=== PATIENT | female | born 1990 | race Caucasian/White ===

== ENCOUNTER 2017-06-19 07:42 | Inpatient (IN) | payer OTHER ==
[2017-06-19 08:00] VITALS: BMI 30.2
[2017-06-19 08:29] LABS: BILIRUBIN,URINE NEGATIVE (NEGATIVE); BLOOD/HEMOGLOBIN,URINE 5+ (NEGATIVE); GLUCOSE, URINE NEGATIVE (NEGATIVE); KETONES,URINE 2+ (NEGATIVE); LEUKOCYTE ESTERASE ,URINE 1+ (NEGATIVE); NITRITES,URINE NEGATIVE (NEGATIVE); PROTEIN,URINE NEGATIVE (NEGATIVE); UROBILINOGEN,URINE NORMAL (NORMAL)
[2017-06-19 08:54] LABS: AMORPHOUS SEDIMENT,UR 1+ /HPF (NEGATIVE); APPEARANCE,URINE HAZY (CLEAR); BACTERIA,URINE TRACE /HPF (NEGATIVE); COLOR,URINE YELLOW (YELLOW); RBC,URINE RARE /HPF (NEGATIVE); SQUAMOUS EPITHELIAL CELL,UR MANY /HPF (NEGATIVE)
[2017-06-19 08:55] LABS: MUCUS,URINE MODERATE /HPF (NEGATIVE)
[2017-06-19] MEDS ORDERED: LR 1000 ML IV 1,000 ML IV ONE ×2 (09:58→10:47)
[2017-06-19] MEDS ORDERED: ANCEF VIAL 1 GM ONE (09:59)
[2017-06-19] MEDS ORDERED: DURAMORPH ONE (10:25)
[2017-06-19] MEDS ORDERED: ANCEF VIAL 1 GM 1 GM in NS 50 ML IV + SPIKE MINIBAG* 50 ML IV PRN (10:25)
[2017-06-19 10:30] LABS: BASOPHILS % (AUTO) 0.3 % (0.2-1.0); EOSINOPHILS % (AUTO) 0.6 % (0.9-2.9); HEMATOCRIT 33.9 % (36.0-47.0); HEMOGLOBIN 11.7 g/dL (12.0-16.0); LYMPHOCYTES # (AUTO) 1.7 X10^3/uL (1.3-2.9); LYMPHOCYTES % (AUTO) 20.5 % (21.0-51.0); MEAN CORPUSCULAR HEMOGLOBIN 30.8 pg (27.0-34.0); MEAN CORPUSCULAR HGB CONC 34.6 g/dL (33.0-35.0); MEAN CORPUSCULAR VOLUME 89.1 fL (80.0-100.0); MONOCYTES # (AUTO) 0.5 x10^3/uL (0.3-0.8); MONOCYTES % (AUTO) 5.7 % (0.0-13.0); NEUTROPHILS % (AUTO) 72.9 % (42.0-75.0); PLATELET COUNT 168 X10^3/uL (150.0-450.0); RED CELL DISTRIBUTION WIDTH 12.7 % (11.6-16.5); WHITE BLOOD COUNT 8.2 X10^3/uL (3.6-10.0)
[2017-06-19] MEDS ORDERED: FLUVIRIN IM ONE (10:38)
[2017-06-19 10:45] LABS: ALANINE AMINOTRANSFERASE 12 Units/L (12-78); ALBUMIN 2.4 g/dL (3.4-5.0); ALKALINE PHOSPHATASE 195 Units/L (46-116); ASPARTATE AMINO TRANSFERASE 15 Units/L (15-37); BLOOD UREA NITROGEN 5 mg/dL (7-18); CALCIUM 8.1 mg/dL (8.5-10.1); CARBON DIOXIDE 20.7 mmol/L (21-32); CHLORIDE 104 mmol/L (98-107); COR CA(FOR HYPOALB) 9.4 mg/dL (8.5-10.1); CREATININE 0.52 mg/dL (0.55-1.02); SODIUM 135 mmol/L (136-145); TOTAL PROTEIN 6.4 g/dL (6.4-8.2); eGFR BLACK RACES > 60 (>60); eGFR NON BLACK RACES > 60 (>60)
[2017-06-19] MEDS ORDERED: D5 1/2 NS 1L W PITOCIN 20 UNITS/L 20 UNITS/1,000 ML BAG IV ONE (10:47)
[2017-06-19] MEDS ORDERED: D5 1/2 NS 1000 ML 1,000 ML IV SCH (11:00)
[2017-06-19] MEDS ORDERED: NS IRRIGATION 1000 ML 1,000 ML IR ONE (11:20)
[2017-06-19] MEDS ORDERED: BENADRYL INJ 50 MG VIAL IVP PRN ×2 (11:32→11:49)
[2017-06-19] MEDS ORDERED: REGLAN INJ 10 MG VIAL IVP PRN ×2 (11:32→11:49)
[2017-06-19] MEDS ORDERED: ZOFRAN INJ 4 MG VIAL IVP PRN ×2 (11:32→11:49)
[2017-06-19] MEDS ORDERED: PHENERGAN INJ 25 MG IVP PRN (11:32)
[2017-06-19 11:47] LABS: BILIRUBIN,URINE NEGATIVE (NEGATIVE); BLOOD/HEMOGLOBIN,URINE 2+ (NEGATIVE); GLUCOSE, URINE NEGATIVE (NEGATIVE); KETONES,URINE 3+ (NEGATIVE); LEUKOCYTE ESTERASE ,URINE 1+ (NEGATIVE); NITRITES,URINE NEGATIVE (NEGATIVE); PROTEIN,URINE 1+ (NEGATIVE); UROBILINOGEN,URINE 1+ (NORMAL)
[2017-06-19] MEDS ORDERED: MYLICON TAB 80 MG CHEW PO PRN (11:49)
[2017-06-19] MEDS ORDERED: PERCOCET TAB 5/325 MG PO PRN (11:49)
[2017-06-19] MEDS ORDERED: NARCAN INJ IVP PRN ×2 (11:49)
[2017-06-19] MEDS ORDERED: MOTRIN TAB 800 MG PO PRN (11:49)
[2017-06-19] MEDS ORDERED: TORADOL 30 MG VIAL IVP PRN (11:49)
[2017-06-19] MEDS ORDERED: D5 1/2 NS 1000 ML 1,000 ML with PITOCIN 20 UNITS IV SCH ×2 (12:00)
[2017-06-19 12:25] LABS: APPEARANCE,URINE CLEAR (CLEAR); BACTERIA,URINE NEGATIVE /HPF (NEGATIVE); COLOR,URINE DARK YELLOW (YELLOW); RBC,URINE 15 - 20 /HPF (NEGATIVE); RENAL EPITHELIAL CELLS,URINE FEW /HPF (NEGATIVE); SQUAMOUS EPITHELIAL CELL,UR FEW /HPF (NEGATIVE)
[2017-06-19 12:26] LABS: AMORPHOUS SEDIMENT,UR 1+ /HPF (NEGATIVE)
[2017-06-19] MEDS ORDERED: EPHEDRINE SULFATE INJ ONE (15:26)
[2017-06-19] MEDS ORDERED: PITOCIN ONE (15:26)
[2017-06-19] MEDS ORDERED: VERSED ONE (15:26)
[2017-06-19] MEDS ORDERED: TYLENOL 325 MG TAB PO PRN (21:02)
[2017-06-19] MEDS: ZANTAC PO SCH (21:04)
[2017-06-19] MEDS: D5 1/2 NS 1000 ML 1,000 ML IV SCH (23:17)
[2017-06-20 05:28] LABS: HEMATOCRIT 25.5 % (36.0-47.0); HEMOGLOBIN 8.9 g/dL (12.0-16.0)
[2017-06-20] MEDS: D5 1/2 NS 1000 ML 1,000 ML IV SCH ×3 (06:50→16:36)
[2017-06-20] MEDS: COLACE CAP 100 MG PO SCH ×2 (08:49→20:35)
[2017-06-20] MEDS: FERROUS GLUCONATE PO SCH ×2 (08:49→16:37)
[2017-06-20] MEDS: ZANTAC PO SCH ×2 (08:50→20:34)
[2017-06-20] MEDS: PRENATAL PLUS PO SCH (08:50)
[2017-06-20] MEDS: PERCOCET TAB 5/325 MG PO PRN ×2 (12:09→21:52)
[2017-06-20] MEDS: BACTROBAN OINT TOP SCH ×2 (13:55→21:56)
[2017-06-21] MEDS: PERCOCET TAB 5/325 MG PO PRN ×2 (04:37→10:50)
[2017-06-21] MEDS: BACTROBAN OINT TOP SCH (05:45)
[2017-06-21] MEDS: FERROUS GLUCONATE PO SCH (06:24)
[2017-06-21] MEDS ORDERED: FLUVIRIN IM ONE (08:10)
[2017-06-21] MEDS: ZANTAC PO SCH (08:44)
[2017-06-21] MEDS: COLACE CAP 100 MG PO SCH (08:44)
[2017-06-21] MEDS: D5 1/2 NS 1000 ML 1,000 ML IV SCH (08:44)
[2017-06-21] MEDS: PRENATAL PLUS PO SCH (08:44)
[2017-06-21 09:35] VITALS: BP 106/55
== END 2017-06-21 11:45 | disposition home or self-care (01) | DRG 775 ==
LOC: ER 07:55 → LD 09:41 → MED/SURG 12:52
PROVIDERS: ADMIT Specialist; ATTEND Specialist
PROC: 3E0234Z Introduction of Serum, Toxoid and Vaccine into Muscle, Percutaneous Approach (ICD-10-PCS; 2017-06-19)
PROC: 10D00Z1 Extraction of Products of Conception, Low, Open Approach (ICD-10-PCS; principal; 2017-06-19 10:30)
DX: O24.410 Gestational diabetes mellitus in pregnancy, diet controlled (principal); Z37.0 Single live birth; O99.013 Anemia complicating pregnancy, third trimester; D50.8 Other iron deficiency anemias; O34.211 Maternal care for low transverse scar from previous cesarean delivery; N85.8 Other specified noninflammatory disorders of uterus; Z3A.38 38 weeks gestation of pregnancy; Z23 Encounter for immunization
CPT/HCPCS: 36415; 80053; 80307; 81001; 85014; 85018; 85025; 86592; 86850; 86900; 86901; 90686; 94640; 99284; A4216; A4222; S0197; G0434; J0690; J1200; J1885; J2250; J2590; J7042; J7120